=== PATIENT | female | born 1950 | race Caucasian/White ===

== ENCOUNTER → 2017-06-22 | Day surgery (SDC) | payer MEDICARE ==
[~2017-06-22] MED LIST: ACETAMINOPHEN 1000 MG/100 ML 100 ML IV ONE; ACETAMINOPHEN/HYDROcodone 325 MG/5 MG TAB ONE; BUPIVACAINE HCL PF 0.5% 30 ML VIAL ONE; KETOROLAC TROMETHAMINE 30 MG/ML (IVP) VIAL IV PUSH ONE; LACTATED RINGER'S 1000 ML INJ 1,000 ML ONE; MIDAZOLAM HCL 2 MG/2 ML VIAL ONE; ONDANSETRON HCL 4 MG/2 ML VIAL IV PUSH ONE; PROPOFOL 200 MG/20 ML AMP IV ONE; ceFAZolin 2 GM PREMIX 50 ML ONE; metroNIDAZOLE 500 MG INJ 100 ML IV ONE
--- NOTE | 2017-06-22 12:28 | TN ---
cc: Festus Parekh MD DATE OF SURGERY: 06/22/2017 PREOPERATIVE DIAGNOSIS: Biliary colic. POSTOPERATIVE DIAGNOSES: 1. Biliary colic. 2. Umbilical hernia PROCEDURES PERFORMED: 1. Laparoscopic cholecystectomy. 2. Repair of umbilical hernia. ANESTHESIA: General. SURGEON: Dr. Parekh. INDICATIONS FOR PROCEDURE: This is a pleasant lady who had findings of biliary colic. She had a HIDA scan which she was symptomatic from. Plans were made for above. PROCEDURE: The patient is taken to the operating room and placed supine on the operating room table. After anesthesia, her abdomen is prepped with Betadine. A timeout is done. She is given preoperative antibiotics. We make an incision just below the umbilicus, dissect down to the fascia and she does have about a 1 cm umbilical hernia. The fascia is dissected free surrounding it. The hernia sac is entered. We were able to place a the 10 mm trocar through the umbilical defect. The abdomen is insufflated with 15 mmHg. A camera is introduced. Two other working ports are placed, a 5-mm below the xiphoid, a 5-mm in between the 2 previously placed ports. The gallbladder can be seen; it is moderately distended. It is grasped superiorly and laterally, identifying the cystic duct. She has almost a nonexistent cystic artery which is cauterized with excellent hemostasis. We dissect the gallbladder off the liver edge and placed it in an EndoCatch and pulled it out through the umbilical incision and this is passed off the field. We then check the dissection site; there is excellent hemostasis without biliary leakage. Liver is smooth. Peritoneal surfaces are smooth. No other gross abnormality is seen. We then removed all the trocars after the CO2 is removed. The umbilical hernia is then repaired with 0 Vicryl interrupted suture to reapproximate the fascial defect in a horizontal fashion. With this done, we then close all 3 sites with a 4-0 Vicryl at the skin layer. Steri-Strips are applied, sterile bandage applied. The patient tolerates the procedure well, had no immediate complication. MD WANDY Rico/PAOLO , 12:04 PM , 12:26 PM
== END | disposition home or self-care (01) ==
LOC: ESDC 08:11
PROVIDERS: ATTEND Surgery
DX: K82.4 Cholesterolosis of gallbladder (principal); K42.9 Umbilical hernia without obstruction or gangrene
CPT/HCPCS: 00750; 00790; 47562; 49585; 88304; J0131; J0690; J1885; J2250; J2405; J3010; J7120